=== PATIENT | male | born 1965 | race Caucasian/White ===

== ENCOUNTER 2020-07-02 03:59 | Observation (INO) | payer SELFPAY ==
--- NOTE | ~2020-07-02 | CT_ITS ---
EXAMINATION: CT ABDOMEN AND PELVIS WITHOUT CONTRAST CLINICAL INFORMATION: Abdominal distention. Suspect small bowel obstruction. COMPARISON: None TECHNIQUE: Multidetector volumetric imaging was performed from the superior aspect of the liver through the pubic symphysis. Sagittal and coronal reformatted images were obtained on the technologist's workstation. This CT examination was performed using dose optimization techniques as appropriate, variously including the following: *Automated exposure control *Adjustment of mA and/or kV according to patient size (this includes techniques or standardized protocols for targeted exams where dose is matched to indication/reason for exam; i.e. extremities or head) *Use of iterative reconstruction technique DLP: 538 mGy-cm FINDINGS: LUNG BASES: The visualized lung bases are unremarkable. LIVER, GALLBLADDER, AND BILIARY TREE: The liver is normal in size, shape, and attenuation. No focal hepatic lesion or biliary ductal dilatation is present. Stones are seen in the gallbladder lumen. Limited evaluation of the gallbladder otherwise, which is mostly decompressed. PANCREAS: Unremarkable. SPLEEN: Unremarkable. ADRENAL GLANDS: Unremarkable. KIDNEYS AND URETERS: The kidneys are normal in size, shape, and attenuation. No hydronephrosis or hydroureter. 0.2 cm left lower pole renal calculus is 6 cm from the posterior axillary line. BLADDER: Unremarkable. GASTROINTESTINAL TRACT: Significantly limited evaluation of the bowel due to lack of IV and oral contrast as well as lack of intra-abdominal fat. There is diffuse dilatation of the colon. Scattered stool within the colon. Questionable pneumatosis in the transverse colon, as seen on series 7 image 31. There is no definite free intraperitoneal air. Gas seen anteriorly in the abdomen as seen on series 3 image 42 is likely within small bowel. Postoperative changes are seen, with suture line seen along the greater curvature of the stomach suggesting gastric sleeve. Additional suture lines are present in the anterior midabdomen. No dilated small bowel. ABDOMINAL WALL: No significant hernia is appreciated. LYMPH NODES: Normal. VASCULAR: Normal caliber aorta with mild atherosclerotic calcification. PELVIC VISCERA: Normal size prostate with calcifications. The seminal vesicles are unremarkable. OSSEOUS STRUCTURES: No acute or suspicious osseous abnormality. CT/CT abdomen pelvis wo con IMPRESSION: Evaluation of the bowel is limited. Postsurgical changes. No small bowel obstruction seen. There is diffuse gas-filled dilatation of the colon with scattered stool throughout. There is suggestion of pneumatosis in the transverse colon. No definite free intraperitoneal air seen. Cholelithiasis. The gallbladder is otherwise not well evaluated. This critical result was discussed with Monica Cordon MD by telephone at 07/02/2020 6:51 AM and it was ascertained that the content and urgency of the report was understood at the time of direct communication.
[2020-07-02 04:08] VITALS: BP 119/78; BP 122/86; PULSE 52; PULSE 73; RESP 15; TEMP 36.8; O2SAT 96; O2SAT 99; BMI 20.3
--- NOTE | 2020-07-02 04:44 | ED.ABDPAIN ---
HPI - Abdominal Pain General Chief Complaint: Abdominal Pain Stated Complaint: STOMACH PAIN W/DISTENTION Time Seen by Provider: 07/02/20 04:44 Source: patient Mode of arrival: wheelchair History of Present Illness HPI narrative: This is a 55-year-old male with significant past medical history of intestinal carcinoid as well as lung CA and is in the [place] area from [facility] due to his mother's passing 2 days ago. Patient is typically seen and evaluated at [facility] and states that he was last there for weeks ago. He states that he has had progressive abdominal distension with pain associated with nausea and vomiting of coffee-ground substance as well as ?bloody stool?, and states that he has stopped passing flatus. He has had chills but denies fevers. Otherwise, he denies chest pain/palpitations. Related Data Allergies Allergy/AdvReac Type Severity Reaction Status Date / Time fentanyl Allergy Shortness Verified 07/02/20 04:18 of Breath Iodinated Contrast Media Allergy Anaphylaxis Verified 07/02/20 04:18 [Contrast Dye] morphine Allergy Hives Verified 07/02/20 04:18 Review of Systems Review of Systems Pertinent positives and negatives as stated in HPI 10 point review systems is otherwise negative. Physical Exam Vital Signs: Vital Signs: Last Vital Signs Temp 98.3 F 07/02/20 04:08 Pulse 68 07/02/20 07:35 Resp 18 07/02/20 07:35 BP 119/78 07/02/20 04:08 Pulse Ox 98 07/02/20 07:35 Body Mass Index 20.3 VITAL SIGNS: Reviewed. GENERAL: Chronically ill, mildly cachectic, mild distress. HEAD: Normocephalic/atraumatic, EYES: PERRLA, EOMI OROPHARYNX: no oral lesions noted, posterior pharynx clear, dry mucosa NECK: Supple, no adenopathy LUNGS: Normal breath sounds. No adventitious sounds or accessory muscle use. SpO2<99> CARDIOVASCULAR: Regular rate and rhythm without noted murmurs ABDOMEN: Soft, diffuse tenderness, distended with hypoactive bowel sounds. MUSCULOSKELETAL: No tenderness, deformities, or effusions noted on gross inspection. EXTREMITIES: No cyanosis, clubbing or edema. SKIN: Inspection of the skin reveals no rashes NEUROLOGIC: Alert and oriented x 4. Strength and sensation to light touch were grossly intact x 4. Procedures EJ/Peripheral Line Arm L: Time Out Performed: No Skin Cleansed in Sterile Fashion: Yes Size (gauge): 20 IV Secured and Dressing Applied: Yes Patient Tolerated Procedure: well Course Course Course Narrative: This is a 55-year-old male with history and clinical presentation most consistent with SBO or GI bleed. On review of all investigations patient is noted to be anemic, and CT scan is significant for dilated colon with concerns for pneumatosis. Guaiac of stool is negative. Attempting to get records from [facility]. Patient is declining redraw for type and screen. This case was discussed with the surgical service and they are in in the process of evaluating further. Signed out to Dr. Castaneda: Plan to follow up with surgery recommendations. MDM - Abdominal Pain Lab Data Result diagrams: 07/02/20 06:11 07/02/20 06:11 Labs: Lab Results 07/02/20 07/02/20 07/02/20 Range/Units 06:11 06:11 06:11 WBC 5.3 (4.8-10.8) X10*3/uL RBC 3.17 L (4.60-5.80) X10*6/uL Hgb 7.7 L (14.0-18.0) g/dl Hct 25.3 L (42-52) % MCV 79.8 L (80-98) fL MCH 24.3 L (27.0-33.0) pg MCHC 30.4 L (31.0-36.0) g/dl RDW 19.7 H (11.0-16.0) % Plt Count 200 (160-400) X10*3/uL MPV 9.6 (9.4-12.4) fL Immature Gran % (Auto) 0.4 (0.0-0.4) % Neut % (Auto) 78.3 H (45-73) % Lymph % (Auto) 9.0 L (20-40) % [place] % (Auto) 11.0 (2-11) % Eos % (Auto) 1.1 (0-4) % Baso % (Auto) 0.2 (0-2) % Lymph # (Auto) 0.5 L (1.2-4.9) X10*3/uL [place] # (Auto) 0.6 (0.1-1.2) X10*3/uL Eos # (Auto) 0.1 (0.0-0.4) X10*3/uL Baso # (Auto) 0.0 (0.0-0.2) X10*3/uL Abs Immat Gran (auto) 0.02 (0.00-0.03) X10*3/uL Absolute Neuts (auto) 4.1 (2.0-8.3) X10*3/uL Absolute Nucleated RBC 0.000 (0.0-0.012) X10*3/uL Nucleated RBC % (auto) 0.0 (0.0-0.2) /100WBC Smear Tech's Comments VERIFIED Sodium 139 (135-145) mmol/L Potassium 4.0 (3.3-5.1) mmol/L Chloride 104 (96-108) mmol/L Carbon Dioxide 28 (22-29) mmol/L Anion Gap 11 L (12-20) BUN 16 (9-16) mg/dL Creatinine 0.80 (0.5-1.4) mg/dL Estim Creat Clear Calc 100.4 Estimated GFR > 60 Random Glucose 96 (60-115) mg/dL Lactic Acid 0.8 (0.5-2.0) mmol/L Calcium 8.1 L (8.4-10.2) mg/dL Total Bilirubin 0.4 (0.0-1.0) mg/dL AST 22 (5-37) U/L ALT 22 (0-40) U/L Alkaline Phosphatase 64 (39-117) U/L Total Protein 5.9 L (6.5-8.0) g/dL Albumin 3.9 (3.5-5.0) g/dL Lipase 39 (8-78) U/L Urine Color Urine Appearance Urine pH (5.0-8.0) Ur Specific [place] (1.005-1.025) Urine Protein (NEG-TRACE) MG/DL Urine Glucose (UA) (NEG) MG/DL Urine Ketones (NEG) MG/DL Urine Blood (NEG) Urine Nitrite (NEG) Ur Leukocyte Esterase (NEG) Stool Occult Blood (NEG) Urine Opiates Screen (Not Detect) Ur Barbiturates Screen (Not Detect) Ur Phencyclidine Scrn (Not Detect) Ur Amphetamines Screen (Not Detect) U Benzodiazepines Scrn (Not Detect) Urine Cocaine Screen (Not Detect) U Marijuana (THC) Screen (Not Detect) 07/02/20 07/02/20 07/02/20 Range/Units 06:11 06:12 06:12 WBC (4.8-10.8) X10*3/uL RBC (4.60-5.80) X10*6/uL Hgb (14.0-18.0) g/dl Hct (42-52) % MCV (80-98) fL MCH (27.0-33.0) pg MCHC (31.0-36.0) g/dl RDW (11.0-16.0) % Plt Count (160-400) X10*3/uL MPV (9.4-12.4) fL Immature Gran % (Auto) (0.0-0.4) % Neut % (Auto) (45-73) % Lymph % (Auto) (20-40) % [place] % (Auto) (2-11) % Eos % (Auto) (0-4) % Baso % (Auto) (0-2) % Lymph # (Auto) (1.2-4.9) X10*3/uL [place] # (Auto) (0.1-1.2) X10*3/uL Eos # (Auto) (0.0-0.4) X10*3/uL Baso # (Auto) (0.0-0.2) X10*3/uL Abs Immat Gran (auto) (0.00-0.03) X10*3/uL Absolute Neuts (auto) (2.0-8.3) X10*3/uL Absolute Nucleated RBC (0.0-0.012) X10*3/uL Nucleated RBC % (auto) (0.0-0.2) /100WBC Smear Tech's Comments Sodium (135-145) mmol/L Potassium (3.3-5.1) mmol/L Chloride (96-108) mmol/L Carbon Dioxide (22-29) mmol/L Anion Gap (12-20) BUN (9-16) mg/dL Creatinine (0.5-1.4) mg/dL Estim Creat Clear Calc Estimated GFR Random Glucose (60-115) mg/dL Lactic Acid (0.5-2.0) mmol/L Calcium (8.4-10.2) mg/dL Total Bilirubin (0.0-1.0) mg/dL AST (5-37) U/L ALT (0-40) U/L Alkaline Phosphatase (39-117) U/L Total Protein (6.5-8.0) g/dL Albumin (3.5-5.0) g/dL Lipase (8-78) U/L Urine Color YELLOW Urine Appearance CLEAR Urine pH 7.0 (5.0-8.0) Ur Specific [place] 1.015 (1.005-1.025) Urine Protein NEG (NEG-TRACE) MG/DL Urine Glucose (UA) NEG (NEG) MG/DL Urine Ketones NEG (NEG) MG/DL Urine Blood NEG (NEG) Urine Nitrite NEG (NEG) Ur Leukocyte Esterase NEG (NEG) Stool Occult Blood NEG (NEG) Urine Opiates Screen Not Detected (Not Detect) Ur Barbiturates Screen Not Detected (Not Detect) Ur Phencyclidine Scrn Not Detected (Not Detect) Ur Amphetamines Screen Not Detected (Not Detect) U Benzodiazepines Scrn Not Detected (Not Detect) Urine Cocaine Screen POSITIVE H (Not Detect) U Marijuana (THC) Screen Not Detected (Not Detect) Discharge Plan Discharge Clinical Impression: Intractable abdominal pain, Dilatation of colon Anemia Qualifiers: Anemia type: unspecified type Qualified Code(s): D64.9 - Anemia, unspecified Patient Disposition: Admitted as Observation [facility] Past Medical History Source: nursing notes reviewed Medical History Anemia Carcinoma COPD (chronic obstructive pulmonary disease) Hypertension Social History Social History Alcohol intake: unknown Smoking Status: Never smoker Use of substances other than those prescribed or required for medical reasons: Unknown Advance Directives: No Advance Directives Information Provided: No
--- NOTE | 2020-07-02 05:34 | PC.NURSE ---
Patient refused his CAT Scan stating that he could not lay flat. Patient refused to let 2 nurses and the doctors establish an iv. Patient kept stating that he was going to leave.
[2020-07-02 06:19] LABS: Basophils Percent Auto 0.2 % (0-2); Eosinophils Absolute Auto 0.1 X10*3/uL (0.0-0.4); Eosinophils Percent Auto 1.1 % (0-4); Hematocrit 25.3 % (42-52); Hemoglobin 7.7 g/dl (14.0-18.0); Imm Gran Abs Auto 0.02 X10*3/uL (0.00-0.03); Imm Gran Pct Auto 0.4 % (0.0-0.4); Lymphocytes Absolute Auto 0.5 X10*3/uL (1.2-4.9); Mean Corpuscular HGB Conc 30.4 g/dl (31.0-36.0); Mean Corpuscular Hemoglobin 24.3 pg (27.0-33.0); Mean Corpuscular Volume 79.8 fL (80-98); Mean Platelet Volume 9.6 fL (9.4-12.4); Monocytes Absolute Auto 0.6 X10*3/uL (0.1-1.2); Neutrophils Absolute Auto 4.1 X10*3/uL (2.0-8.3); Neutrophils Percent Auto 78.3 % (45-73); Platelet Count 200 X10*3/uL (160-400); Red Blood Count 3.17 X10*6/uL (4.60-5.80); Red Cell Distribution Width 19.7 % (11.0-16.0); SCAN SMEAR FLAG 1; White Blood Count 5.3 X10*3/uL (4.8-10.8)
[2020-07-02 06:25] VITALS: RESP 15
[2020-07-02] MEDS: HYDROmorphone HCl 1 MG/ML SYRINGE IVPUSH ×2 (06:25→07:57)
[2020-07-02] MEDS: ondansetron HCL 4 MG/2 ML VIAL IVPUSH (06:25)
[2020-07-02 06:29] LABS: Glucose Urine UA NEG (NEG); Leukocyte Esterase Urine NEG (NEG); Nitrite Urine NEG (NEG); Specific Gravity - Urine 1.015 (1.005-1.025); UACC Culture Trigger NO; Urine Blood NEG (NEG); Urine Ketones NEG (NEG); Urine Protein NEG (NEG-TRACE)
[2020-07-02 06:30] LABS: Appearance Urine CLEAR; Color Urine YELLOW
[2020-07-02 06:37] LABS: MANUAL DIFF FLAG SCAN; SLIDE REVIEW VERIFIED
[2020-07-02 06:38] LABS: Lactic Acid 0.8 mmol/L (0.5-2.0)
[2020-07-02 06:43] LABS: Alanine Aminotransferase 22 U/L (0-40); Albumin Level 3.9 g/dL (3.5-5.0); Alkaline Phosphatase 64 U/L (39-117); Anion Gap 11 (12-20); Aspartate Amino Transferase 22 U/L (5-37); Bilirubin Total 0.4 mg/dL (0.0-1.0); Blood Urea Nitrogen 16 mg/dL (9-16); Calcium 8.1 mg/dL (8.4-10.2); Carbon Dioxide 28 mmol/L (22-29); Chloride 104 mmol/L (96-108); Creatinine Clr Calc Pharmacy 100.4; Estimated Glomerular Filt Rate > 60; Glucose Random 96 mg/dL (60-115); Lipase 39 U/L (8-78); Sodium 139 mmol/L (135-145); Total Protein 5.9 g/dL (6.5-8.0)
[2020-07-02 06:59] LABS: Amphetamine Screen Urine Not Detected (Not Detect); Barbiturates, Urine Not Detected (Not Detect); Benzodiazepines Screen Urine Not Detected (Not Detect); Cannabinoid Screen Urine Not Detected (Not Detect); Cocaine Screen Urine POSITIVE (Not Detect); Opiate Screen Urine Not Detected (Not Detect); Phencyclidine Screen Urine Not Detected (Not Detect)
[2020-07-02 07:14] LABS: OBS Int Ctl Valid YES; OBS1 NEG (NEG)
[2020-07-02 07:35] VITALS: PULSE 68; RESP 18; O2SAT 98
--- NOTE | 2020-07-02 08:39 | PC.NURSE ---
surgon at bedside, stated we do not need to place NG tube. Dr landers aware.
[2020-07-02 08:58] LABS: COVID-19 Test Negative (Negative); IDNOW Serial# 9DD0AD1C
--- NOTE | 2020-07-02 10:43 | PC.NURSE ---
PT REFUSED TO RUN IVF THROUGH CURRENT ACCESS, CONTACTED DR AGUIRRE. PT STATES HE WAS TOLD HE WOULD GET A PICC OR MIDLINE.
--- NOTE | 2020-07-02 11:01 | PM.HPGS ---
History of Present Illness History of Present Illness Date of Service: 07/03/20 Chief complaint: ILEUS Narrative: Reid Morrell is a 55 year old male here in the emergency room because of abdominal pain. He said he has had this for ?a few days?. He does state that he has had multiple abdominal issues for several years. He says he has had about 16 surgeries on his abdomen. He describes this as from perforated bowel 2-3 times, obstructions, as well as carcinoids on different parts of his intestines. He says that his last surgery was just about 3 months ago in [facility]. He says he spent several weeks in hospital and was just discharged about 2 weeks ago. He says he does came up here to [place] because of his mother's . He says he had a colonoscopy recently showing what he says was a carcinoid in his rectum. He said he no longer wants of any further surgeries. He says he has been requiring a lot of pain medications during his hospital stays. He said he normally takes Dilaudid 2 mg every 3 hours for pain during his last hospital stay. He says he had some vomiting at home. He describes that his abdomen was distended. He has severe anxiety issues. He has PTSD and has had this since 01/12/2001. 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. He states that he has had asbestosis as well. Review of Systems Constitutional: Constitutional: Denies chills and Denies fever(s) Cardiovascular: Cardiovascular: Denies chest pain and Reports dyspnea on exertion Respiratory: Respiratory: Denies cough and Reports dyspnea on exertion Gastrointestinal: Gastrointestinal: Denies change in bowel habits and Reports constipation Genitourinary: Genitourinary: Denies hematuria and Denies difficulty urinating Musculoskeletal: Musculoskeletal: Reports back pain and Denies limited range of motion Neurologic: Denies focal weakness and Denies convulsions Psychiatric: Psychiatric: Reports anxiety, Reports depression, Reports difficulty concentrating and Denies mood swings [facility] Past Medical History Medical History (Updated 07/02/20 @ 11:07 by Anthony Leo MD) Anemia Asbestosis Carcinoid tumor Carcinoma Chronic anemia COPD (chronic obstructive pulmonary disease) Hypertension Ileus PTSD (post-traumatic stress disorder) Surgical History Surgical History (Updated 07/02/20 @ 09:19 by Anthony Leo MD) History of abdominal surgery Social History Social History Alcohol intake: unknown Smoking Status: Never smoker Use of substances other than those prescribed or required for medical reasons: Unknown Advance Directives: No Advance Directives Information Provided: No Meds Allergies Allergy/AdvReac Type Severity Reaction Status Date / Time fentanyl Allergy Shortness Verified 07/02/20 04:18 of Breath Iodinated Contrast Media Allergy Anaphylaxis Verified 07/02/20 04:18 [Contrast Dye] morphine Allergy Hives Verified 07/02/20 04:18 Active Medications: Current Medications Generic Name Dose Route Start Last Admin Trade Name Freq PRN Reason Stop Dose Admin Hydromorphone HCl 1.5 mg 07/02/20 09:20 Hydromorphone Hcl 2 Mg/Ml Vial IVPUSH Q3H PRN Pain, Severe (Pain Scale 7-10) Sodium Chloride 1,000 mls @ 100 mls/hr 07/02/20 09:30 Ns IVCONT .Q10H NELLA Ondansetron HCl 4 mg 07/02/20 09:16 Ondansetron Hcl 4 Mg/2 Ml Vial IVPUSH Q8H PRN Nausea and Vomiting Sodium Chloride 3 ml 07/02/20 16:00 0.9 % Sodium Chloride Flush 3 Ml Syringe IVFLUSH QSHIFT NELLA Physical Exam Vital Signs: Vital Signs: Last Vital Signs Temp 98.3 F 07/02/20 04:08 Pulse 68 07/02/20 07:35 Resp 18 07/02/20 07:35 BP 119/78 07/02/20 04:08 Pulse Ox 98 07/02/20 07:35 Body Mass Index 20.3 Const: Other: Appears very anxious General: no acute distress Orientation/consciousness: patient oriented x3 Neck: Neck: Yes no lymphadenopathy Resp: Auscultation: clear to auscultation bilaterally Cardio: Rhythm: regular rhythm GI: Other: Distended moderately Palpation (GI): Soft to palpation, Tenderness to palpation present (GI) (Mild, diffuse) and no guarding Neuro: General: patient oriented x3 Results Results Labs: Short CBC 07/02/20 Range/Units 06:11 WBC 5.3 (4.8-10.8) X10*3/uL Hgb 7.7 L (14.0-18.0) g/dl Hct 25.3 L (42-52) % Plt Count 200 (160-400) X10*3/uL BMP 07/02/20 06:11 Sodium 139 Potassium 4.0 Chloride 104 Carbon Dioxide 28 BUN 16 Creatinine 0.80 Calcium 8.1 L Liver Function 07/02/20 Range/Units 06:11 Total Bilirubin 0.4 (0.0-1.0) mg/dL AST 22 (5-37) U/L ALT 22 (0-40) U/L Alkaline Phosphatase 64 (39-117) U/L Albumin 3.9 (3.5-5.0) g/dL Urine 07/02/20 Range/Units 06:12 Urine Color YELLOW Urine Appearance CLEAR Urine pH 7.0 (5.0-8.0) Ur Specific [place] 1.015 (1.005-1.025) Urine Protein NEG (NEG-TRACE) MG/DL Urine Glucose (UA) NEG (NEG) MG/DL Abdomen CT scan report/results: report reviewed and image reviewed CT scan - pelvis: report reviewed and image reviewed Assessment and Plan (1) Ileus: Status: Acute He was admitted because of abdominal pain and distension. He does admit that this is not the 1st time he has had this and has had multiple surgeries on his abdomen. I have reviewed his CAT scan images with the radiologist Dr. Roman. There is no obstruction although he does have some diffuse dilatation of his small bowel and colon. He has air all the way into the rectum. There is some significant amount of stool as well. There is no evidence of pneumatosis. I explained these findings to the patient. I also explained to him that his previous narcotic use with Dilaudid may be contributory. However, he states that only medication that relieved him of his abdominal pain is the Dilaudid. He has poor veins from chemotherapy from his carcinoid tumors. He says he usually has a PICC line placed for IV medications. We will arrange for this as well. I spent more than an hour examining the patient, reviewing his imaging studies and clinical data, discussing with him the ongoing work up. Procedures Date of Service Date of Service: 07/02/20
--- NOTE | 2020-07-02 11:44 | PC.NURSE ---
PT PULLED PUT OUT HIS IV, BECAUSE HE WASNT GETTING A PICC OR MID LINE TODAY, REFUSED TO HAVE ME LOOK FOR ADDITIONAL ACCESS. NOTIFIED DR AGUIRRE AND PT IS LEAVING AMA
--- NOTE | 2020-07-02 12:13 | P.EN_ITS ---
Event Note Date of Service: 07/02/20 Event Note: I was called by the ED nurse to say that the patient wants to sign out AMA I went down therefore to talk to him. He says he does not want to stay. He says that he wants to take care of his mother's and has to go to the home and the spiritism to make the arrangements He understands implications of his leaving the hospital with risk of worsening pain and ileus
--- NOTE | 2020-07-02 12:49 | PM.DS ---
DS: Providers Provider Date of Service: 07/04/20 Date of admission: 07/02/20 09:19 Primary care physician: Unknown Physician DS: Diagnosis Discharge Diagnosis (1) Ileus: Status: Acute (2) PTSD (post-traumatic stress disorder): Status: Acute (3) History of abdominal surgery: Status: Acute DS: Summary Hospital Course Hospital Course: BRIEF HPI: Reid Morrell is a 55 year old male here in the emergency room because of abdominal pain. He said he has had this for ?a few days?. The pain is associated with vomiting and distention. He does state that he has had multiple abdominal issues for several years. He says he has had about 16 surgeries on his abdomen. He describes this was from perforated bowel 2-3 times, obstructions, as well as carcinoids on different parts of his intestines. He says that his last surgery was just about 3 months ago in [facility]. He says he spent several weeks in hospital and was just discharged about 2 weeks ago. He says he does came up here to [place] because of his mother's . He says he had a colonoscopy recently showing what he says was a carcinoid in his rectum. He said he no longer wants of any further surgeries. He says he has been requiring a lot of pain medications during his hospital stays. He said he was taking Dilaudid 2 mg every 3 hours for pain during his last hospital stay. Patient also has severe anxiety issues. He has PTSD and has had this since 01/12/2001. 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 He states that he has had asbestosis as well. In the ED, work up included a CT scan which showed no obstruction although there was diffuse dilatation of his small bowel and colon, with air into the rectum and a significant amount of stool as well. There was no evidence of pneumatosis. His WBC count was normal but he was anemic with an H/H of 7.7/25.3, guiac stool was negative. HOSPITAL COURSE: The patient was admitted to the surgical service in light of his abdominal pain and distension, likely secondary to an ileus and his previous narcotic use with Dilaudid may be contributory. A PICC line was requested as he reported he usually has a PICC line placed for IV medications due to poor venous access. He will be kept NPO and started on IVF and analgesics PRN once the PICC is in place. Not even an hour after admission, the patient requested to sign out AMA. He was seen by Dr. Leo and the patient continually reported he did not want to stay and he wanted to take care of his mother's arrangements. He understood the implications of his leaving the hospital with risk of worsening pain and ileus. He left AMA on 07/02/20. Status at Discharge Functional status at discharge: independent ambulation Overall status at discharge: patient is not back to baseline Time Spent with Patient Time attestation: Total time spent providing and/or coordinating discharge services: Discharge coordination time: Less than 30 minutes Physical Exam Vital Signs: Vital Signs: Last Vital Signs Temp 98.3 F 07/02/20 04:08 Pulse 68 07/02/20 07:35 Resp 18 07/02/20 07:35 BP 119/78 07/02/20 04:08 Pulse Ox 98 07/02/20 07:35 Body Mass Index 20.3 Const: General: no acute distress and alert Orientation/consciousness: patient oriented x3 Eyes: Sclerae: sclerae normal Resp: Effort & Inspection: normal respiratory effort GI: Inspection: Yes distended and Yes scar Palpation (GI): Soft to palpation, Tenderness to palpation present (GI) (mild, diffuse), no guarding, not rigid and No Rebound tenderness present Skin: General skin exam: no rashes or lesions noted Neuro: General: patient oriented x3 Extrem: General: Yes no clubbing, cyanosis or edema DS: Data Data Completed and Pending Labs on day of discharge: Preliminary micro results at discharge 07/02/20 06:11 Blood Culture - Preliminary Blood - Venous No growth after 48 hours. 07/02/20 06:11 Blood Culture - Preliminary Blood - Venous No growth after 48 hours. Discharge Plan Discharge Patient Disposition: Left Against Medical Advice Discharge Orders: Discharge Order (Routine); Ordered 07/04/20 Ordered By: Kailey Hope Stand Alone Forms: Against Medical Advice Care Plan Goals: left AMA Health Concerns: LEFT AMA Plan of Treatment: LEFT AMA Discharge Date/Time: 07/02/20 11:51
== END 2020-07-02 11:51 | disposition left against medical advice (07) ==
LOC: HO.ED 08:00 → HO.EDOVER 11:00 → HO.S3 11:00
PROVIDERS: Admitting Provider Surgery; Emergency Provider Student in an Organized Health Care Education/Training Program; Visit Provider Surgery
DX: K56.7 Ileus, unspecified (principal); F43.10 Post-traumatic stress disorder, unspecified; K59.39 Other megacolon; R14.0 Abdominal distension (gaseous); D3A.026 Benign carcinoid tumor of the rectum; Z88.5 Allergy status to narcotic agent; Z88.6 Allergy status to analgesic agent; Z91.041 Radiographic dye allergy status; Z98.890 Other specified postprocedural states; Z53.29 Procedure and treatment not carried out because of patient's decision for other reasons
CPT/HCPCS: 36415; 43752; 74176; 80053; 80307; 81003; 82272; 83605; 83690; 85025; 86901; 87040; 87635; 96361; 96374; 96375; 99218; 99284; 99285; J1170; J2405